=== PATIENT | female | born 1960 | race Caucasian/White ===

== ENCOUNTER 2016-11-03 08:23 | Inpatient (IN) | payer MEDICARE, MEDICAID ==
[2016-11-03] VITALS (11 sets, daily range): BP systolic 96–142; BP diastolic 65–92; PULSE 64–80; RESP 13–24; O2SAT 91–100
[~2016-11-03] VITALS: Ht 175.3 cm; Wt 97.2 kg
[~2016-11-03 08:23] MED LIST: ALBU8.5H4 IH; AMIT100T2 PO; AMT25T PO; Acetaminophen IV 1,000 mg IV ONE; Bupivacaine Liposome 1.3% 20 mL Inj INFILTRATE ONE; CALC60CR3 TOP; CARI350T PO; CERA453C2 TP; CHOL500011 PO; CLOB15CR3 TOP; Clindamycin 900 mg/50 mL D5W IV ONE; DIAZ10TA3 PO; DICY20TA10 PO; DULO30CA50 PO; DULO60CA61 PO; ESOM40CA41 PO; FOLI1TAB18 PO; Gentamicin 40 mg/mL 2 mL Inj INJ ONE; Hip/Knee Infiltration Cocktail INFILTRATE ONE; LIP40 PO; LOPE2TAB32 PO; LORA10CA PO; Lactated Ringer's 1,000 ML IV SCH; METH25VI21 IM; METO-301 PO; METO-386 PO
[2016-11-03] MEDS ORDERED: Lactated Ringer's 1,000 ML IV ONE ×2 (09:33→13:31)
[2016-11-03] MEDS ORDERED: Magnesium Hydroxide 10 mL Oral Concentration PO PRN (10:15)
[2016-11-03] MEDS ORDERED: Polyethylene Glycol (PEG) 17 Gm Powder PO PRN (10:15)
[2016-11-03] MEDS ORDERED: HYDROcodone-APAP 5-325 mg Tablet PO PRN (10:15)
[2016-11-03] MEDS ORDERED: Sodium Biphos-Phos 133 mL Enema RECTAL PRN (10:15)
[2016-11-03] MEDS ORDERED: Lactated Ringer's 1,000 ML IV SCH (11:17)
[2016-11-03] MEDS ORDERED: Lactated Ringer's 500 ML IV PRN (11:17)
[2016-11-03] MEDS ORDERED: fentaNYL-PF 50 mCg/mL 2 mL Inj IVPUSH PRN (11:20)
[2016-11-03] MEDS ORDERED: EPHEDrine Sulfate 50 mg/mL Inj IVPUSH PRN (11:20)
[2016-11-03] MEDS ORDERED: Dexamethasone 4 mg/mL Inj IVPUSH PRN (11:20)
[2016-11-03] MEDS ORDERED: Phenylephrine 10,000 mCg/mL Inj IVPUSH PRN (11:20)
[2016-11-03] MEDS ORDERED: Ondansetron 2 mg/mL 2 mL Inj IVPUSH PRN (11:20)
[2016-11-03] MEDS ORDERED: HYDROmorphone 1 mg/mL Inj IVPUSH PRN ×2 (11:20→14:10)
[2016-11-03] MEDS ORDERED: Bacitracin 50,000 unit Inj IRRIGATION ONE (11:21)
[2016-11-03] MEDS: [UNRECOGNIZED DRUG - OTHER] INFILTRATE ONE ×14 (11:23→12:04)
[2016-11-03] MEDS: BUPIVACAINE INFILTRATE ONE ×14 (11:23→12:04)
[2016-11-03] MEDS: MORPHINE INFILTRATE ONE ×14 (11:23→12:04)
--- NOTE | 2016-11-03 12:14 | PCM.HPANE ---
Patient Data Surgeon Admitting Provider: Attending Provider:Eduin Jaramillo MD Primary Care Physician:Dennis Pineda MD Other Provider:[place] [facility] Reason for Visit Left Shoulder Arthritis Ht/WT & BMI Height (Feet): 5 Height (Inches): 9 Weight (Kilograms): 99.3 Body Mass Index 32.00 Allergies Coded Allergies: NSAIDS (Non-Steroidal Anti-Inflamma (Verified Allergy, Severe, GI bleed, ) Pyrimidine Analogues (Verified Allergy, Severe, GI bleed, 10/26/16) Sulfa (Sulfonamide Antibiotics) (Verified Allergy, Severe, Nausea and vomiting, 10/26/16) ascorbic acid (Verified Allergy, Severe, Gi upset, 10/26/16) aspirin (Verified Allergy, Severe, GI bleed, 10/26/16) bupropion (Verified Allergy, Severe, itching, 10/26/16) cephalexin (Verified Allergy, Severe, Gi bleed, nausea and vomiting, ) chondroitin sulfate A (Verified Allergy, Severe, Gi upset, 10/26/16) ciprofloxacin (Verified Allergy, Severe, Seizure, 10/26/16) clopidogrel (Verified Allergy, Severe, Unsteady gait, 10/26/16) diphenhydramine (Verified Allergy, Severe, colon irritation, 10/26/16) gabapentin (Verified Allergy, Severe, Gi bleed, 10/26/16) gadobutrol (Verified Allergy, Severe, Anaphylaxis, 10/26/16) MRI contrast glucosamine (Verified Allergy, Severe, Gi upset, 10/26/16) ketorolac (Verified Allergy, Severe, IM and IV ok, taken PO causes GI upset, 10/26/16) manganese (Verified Allergy, Severe, Gi upset, 10/26/16) methylsulfonylmethane (Verified Allergy, Severe, Gi upset, 10/26/16) morphine (Verified Allergy, Severe, Immunity and severe nausea and vomiting, 10/26/16) tizanidine (Verified Allergy, Severe, headache, 10/26/16) tramadol (Verified Allergy, Severe, IV or IM ok, taken PO causes GI bleed , 10/26/16) tromethamine (Verified Allergy, Severe, nausea and vomiting, 10/26/16) erythromycin base (Verified Allergy, Intermediate, nausea and vomiting, ) Penicillins (Verified Adverse Reaction, Severe, COMA, 10/26/16) sumatriptan (Verified Adverse Reaction, Severe, nausea and vomiting, ) Uncoded Allergies: PARIDODINE (Allergy, Unknown, 06/19/14) Past Anesthesia History Anesthesia History: Denies:: Abnormal Airway, Anesthesia Reactions, Difficult Intubation, Fam Anesthesia Reaction, Fam Malignant Hypertherm, Malignant Hyperthermia Diabetes History Hx Diabetes?: No MRSA MRSA: No Medications Hypertension Medication: Yes (Lipitor) Home Meds Incl Beta Dav: No Reported Medications Loratadine (Claritin)10 Mg Ofdtnfk83 Mg PO DAILY Ref 0 10/26/16 Folic Acid 1 Mg Tablet1 Mg PO DAILY 30 Days 10/26/16 Duloxetine 60 Mg Capsule.dr60 Mg PO MORNING Ref 0 10/26/16 Duloxetine 30 Mg Capsule.dr30 Mg PO QPM Ref 0 10/26/16 Loperamide 2 Mg Tablet2 Mg PO QPM PRN For Diarrhea or Loose Stool 10/26/16 Loperamide 2 Mg Tablet2 Mg PO MORNING PRN For Diarrhea or Loose Stool 10/26/16 Calcipotriene Cream 30 Appl/60 Gm Cream1 Appl TOP BID #1 TUBE Ref 0 07/23/14 Clobetasol Propionate/Emoll (Clobetasol Emollient 0.05% Crm)15 Gm Cream..g.1 Appl TOP BID #1 TUBE 07/23/14 Ceramides 1,3,6-11 (Cerave)453 Gm Cream..g.453 Gm TP BID 07/23/14 Albuterol HFA 8.5 Gm Hfa.aer.ad2 Puffs IH Q4-6H PRN For Shortness of Breath 07/18/14 Methotrexate Sod (Methotrexate 25 mg/ml Vial)25 Mg/1 Ml Sdv1 Ml IM QW on Fridays07/18/14 Cholecalciferol (Vitamin D3) (Vitamin D3)5,000 Unit Tablet5,000 Unit PO DAILY 07/18/14 Amitriptyline 100 Mg Kxbrqd317 Mg PO HS 07/18/14 Dicyclomine 20 Mg Srvlil81 Mg PO TID PRN For GI Cramps 06/19/14 Diazepam 10 Mg Rbijxn17 Mg PO TID PRN For Anxiety 06/19/14 Metoprolol Succinate ER 25 Mg Tab.er.24h25 Mg PO DAILY 06/19/14 Carisoprodol (Soma)350 Mg Xewptx246 Mg PO QID PRN For Pain 06/19/14 Esomeprazole Magnesium (Nexium)40 Mg Capsule.dr40 Mg PO DAILY 06/19/14 Amitriptyline 25 Mg Tab25 Mg PO HS 06/19/14 Atorvastatin (Lipitor)40 Mg Quouzr64 Mg PO HS 06/19/14 Discontinued Reported Medications Metoclopramide (Reglan)10 Mg Gpwbxn06 Mg PO TID PRN reflux 06/19/14 History History of ENT Problems?: Yes HEENT History: Positive for:: TMJ Denies:: Abnormal Airway Cataracts Difficult Intubation Dysphagia Hearing Problem Sinus Problem Denture Type: Full- Upper Full- Lower Teeth Condition: Missing Teeth Hx of Heart Problems?: Yes Cardiovascular History: Positive for:: Chest Pain (non cardiac) Hypertension Irregular Heartbeat (48 hr halter monitor occ. PVC & PAC) Denies:: AICD Abdominal Aortic Aneurism Atrial Fibrillation Cardiac Surgery Congestive Heart Failure Coronary Artery Disease Edema Heart Murmur Pacemaker Thrombophlebitis Valvular Heart Disease Hx of Respiratory Problem?: Yes Respiratory History: Positive for:: Asthma Dyspnea Pneumonia (Last winter 2015) Use of Inhalers / NEBS (albuterol) Denies:: COPD Chest Surgery Cough Emphysema Hemoptysis Pulmonary Embolism Tuberculosis Use of C-PAP Machine Hx Neurologic Problems?: Yes Neurological History: Positive for:: Headaches TIA (last 20 yrs ago) Denies:: Alzheimer's Disease CVA Dementia Dizziness Parkinson's Disease Seizures Hx of GI Problems?: Yes Hx of Problems?: No Genitourinary History: Denies:: HX of Hemodialysis Urinary Tract Infection HX of Peritoneal Dialysis: No Female Hx: Positive for:: Endometriosis Denies:: Currently Pelvic Inflammatory Problems with Breasts? Skin History: Positive for:: History Skin Disorders? (Psortic arthritis) Denies:: Pressure Ulcers Hx Musculoskeletal Problems?: Yes Musculoskeletal History: Positive for:: Back Injury (fibromyagia, psoriatric arthritis, 4 back surgeries, ) Fibromyalgia Osteoarthritis Denies:: Degenerative Joint Joint Replacement Musculoskeletal Trauma Rheumatoid Arthritis Hx of Psycho/Social Problems?: Yes Psycho Social History: Positive for:: Anxiety Hx Depression Denies:: Bipolar Disorder Suicide Attempt Hx Surgeries?: Yes (tonsils, right shoulder, foot, r toe fusion,back and neck, hyst,appy) Hx Any Other Health Problems?: Yes Other History: Positive for:: Hospitalization Denies:: Cancer Thyroid Disease History Blood Transfusions: Denies:: Accept Blood Products? Blood Transfuse Reaction Blood Transfusions Hx Diabetes: No Hx Alcohol Use: NoHx Substance Use: No Smoking Status: Current Every Day Smoker Have You Smoked inLast 12 mo: Yes (vapor smoker) Stop/Bang S-Snoring: Do You Snore Loudly: No T-Tired: feel tired, fatigued: Yes O-Obsered: Observed not breath: No P-Blood Pressure: treated: Yes B- Body Mass Index > 35 kg/m2: Yes A- Age over 50: Yes N- Neck Large Circumference: No G- Gender Male: No JENNIFER Total Score: 4 Risk Assessment Category Category 1A: Patient has history of documented sleep apnea, and HAS NOT received any narcotic, sedative or anesthesia administration during this stay. Category 1B: Patient has history of documented sleep apnea, and HAS received any narcotic , sedative or anesthesia administration during this stay Category 2: Patient has SUSPECTED Obstructive Sleep Apnea, and HAS received any narcotic , sedative or anesthesia administration during this stay. Category 3: Patient has SUSPECTED Obstructive Sleep Apnea and HAS NOT received narcotic, sedative or anesthesia administration during this stay. Category 4: Outpatient in Procedural Areas with known sleep apnea or who screen positive for High Risk via the STOP/BANG questionnaire. Exam Exam General Appearance: Alert, Oriented X3, Cooperative, No Acute Distress HEENT/AIRWAY: MP 2, Neck Movement (FROM despite neck surgery), Mouth Opening ( 3 fbmo) Lungs: Diminished Heart: Exam Unremarkable, Regular Rate/Rhythm, No Murmurs/Rubs/Gallops Plan Impression Patient chart reviewed, patient interviewed and anesthestic plan with risks, benefits, and alternatives discussed, and informed consent obtained. NPO per Anesth. Guidelines: Yes ASA Physical Status: ASA3 Severe Disease Anesthetic Plan: GA, Regional Block (left interscalene block - long discussion about risks including postoperative nerve damage including motor and/or sensory loss as well as shortness of breath and difficulty breathing. The patient still wanted to proceed. AQA. Consent signed.) Bene/Risks/Altern/Consents: Yes HP Complete Prior to Induction: Yes Neil Ortega MD Nov 03, 2016 09:32
--- NOTE | 2016-11-03 12:48 | PCM.ORTHOP ---
Orthopedic Operative Report Date of Service: Nov 03, 2016 Pre Operative Diagnosis left shoulder degenerative joint disease Post Operative Diagnosis left shoulder degenerative joint disease Procedure left total shoulder arthroplasty, open biceps tenodesis Surgeon Surgeon: Eduin Jaramillo MD Assistants: Petar Anderson Indication for Procedure left shoulder DJD Findings per dictation Details of Procedure Implant: Arthrex univers vaultlock size small glenoid, stem size 12mm with 52/ 22 head The risks, benefits, indications and alternatives, including non-operative management of open reduction and plating were discussed with the patient in detail. The patient understood this operation would be strictly for pain control and would not necessarily improve the function of the arm. The patient voiced understanding of the risks and agreed to proceed. All questions were answered to the patients satisfaction. Verbal and written consent were obtained. Description of Operation: The patient was brought to the operating room. Time out was performed in the presence of the Orthopedic and the sales special agent. Preoperative antibiotics were given. Interscalene block performed by anesthesia. General anesthesia was administered. The patient was placed in a beachchair position. The left arm was prepped and draped in the usual sterile fashion. A standard deltopectoral approach was made. Blunt dissection was carried through the interval to expose the subscapularis muscle after retracting the conjoined tendon medially. Care was taken to not damage nearby neurovascular structures. The anterior humeral circumflex vessels were ligated. Minaya scissors were used to cut through the rotator interval to expose the anatomic neck of the humerus. The subscapularis tendon was tagged using # 1 Ethibond sutures. The subscapularis tendon was cut longitudinally using a Bovie. The shoulder was slowly externally rotated while peeling the inferior capsule off of the humeral neck until the shoulder was dislocated and the humeral head was exposed. There were several small loose bodies in the subscapularis recess which were removed. There was extensive erosion and flattening of the humeral head. Extensive osteophytes were present over the periphery of the humeral head. Mild to moderate dysplasia of the head was seen as evidenced by the increased inclination of the head. The subscapularis was tucked medially. The osteophytes around the humeral head were removed using an osteotome and mallet to expose the anatomic neck. The supraspinatus and infraspinatus were found to be intact and attached to the greater tuberosity. A neck cutting guide was placed and then the cut was made with 30 degrees of retroversion using a saw. The neck was sequentially broached to the proper fit. The head trial were placed until the proper fit was obtained. A head protector sleeve was placed on the cut surface. Using a Triatt retractor the glenoid was exposed. Circumferential exposure of the glenoid from the 1 o'clock position to the 7 o'clock position was done using a Bovie taking care to stay close to the bone. The glenoid was sized and then reamed appropriately. Peg holes were drilled along with the center hole. A trial implant was placed which fit well. After removing the trial, the wound was irrigated. The peg holes were filled with manually pressurized cement and the above mentioned glenoid component was impacted until an excellent fit was obtained. Attention was then taken to the humeral head. The humeral head trial was placed the the shoulder stability was verified after reduction and found to be appropriate. The trial head and stem were removed and proper inclination was noted. Multiple #2 Fiber-wire sutures were placed in the lateral subscapularis stump on the lesser tuberosity and then through the rim of the humeral neck. The implant was assembled on the back table. The wound was irrigated. The humeral implant was impacted into the humerus until the proper fit was obtained. The shoulder was reduced and excellent stability was tested and verified. The subscapularis was then repaired using the aforementioned Fiber-wire sutures and also an 0-Vicryl suture. A proximal biceps tenotomy was performed after a distal tenodesis was performed to the pec major.. The rotator interval was closed. Hemostasis was achieved. The wound was irrigated with copious saline. Local cocktail was used which included bupivicaine. Gentamicin was injected into the joint. IV transexamic acid was used preop and intraop. The wound was then closed in layers , dressed appropriately and the shoulder was placed in an immobilizer. The patient was extubated without difficulty and transferred to the PACU in stable condition. ESTATE MANAGER SURGEON: During the operation, the services of physician surgical coordinator were medically indicated and necessary to provide exposure of the operative site for the surgical procedure and to maintain the limb in a proper position to carry out the operation safely and efficiently. Without the qualified assistant service manager being present, it would have extended the operative procedure and made the procedure technically more difficult to perform. Nonweightbearing to affected upper extremity. Please leave sling on at all times. You may remove sling 3 times a day to move the elbow wrist and fingers. Do not move your shoulder. PROM only, IR to body, ER to 0 degrees, FF to 90 degrees, ABD to 0 degrees. Keep your arm at neutral, NO external rotation of the arm, no resisted IR of the arm. Please keep the affected extremity elevated when possible. You may use ice and/or heat as needed for comfort. Follow-up in 2 weeks with me with 2-view xrays and for suture removal and Steri -Strip application. Follow-up with me at 6 weeks. You will have pain medications , medication for constipation and have deferred aspirin 81 qdaily X 2 weeks given your hx of aspirin allergy. Grafts, Implants: Implants-See Implant Record Complications There were no periprocedural complications identified. Condition Stable Anesthetic Administered: GA Catheters: None Output, Estimated Blood Loss: 50 Blood Admin during surgery: No Surgical Cast or Splint: Shoulder Immobilizer Surgical Specimen Removed: No Specimen sent to Pathology: No copies to: Eduin Jaramillo MD, Christopher L MD Nov 03, 2016 12:48
--- NOTE | 2016-11-03 13:41 | DRSVH ---
PROCEDURE: X-RAY LEFT SHOULDER, MINIMUM TWO VIEWS ([id number]) INDICATIONS: post op TECHNIQUE: 2 views of the shoulder were acquired. COMPARISON: LOCATED WITHIN [facility], CR, XR SHOULDER MIN 2VW LT, 09/08/2016, 12:43. FINDINGS: Postoperative images demonstrate left humeral arthroplasty. There is good anatomic alignment. Hardwar e is intact. No visualized fracture. IMPRESSION: Postoperative left humeral arthroplasty. Dictated by: Lulu Argueta M.D. on 11/03/2016 at 13:39 Approved by: Lulu Argueta M.D. on 11/03/2016 at 13:40
[2016-11-03] MEDS ORDERED: fentaNYL-PF 50 mCg/mL 2 mL Inj ONE (13:44)
[2016-11-03] MEDS ORDERED: Rocuronium 10 mg/mL 5 mL Inj ONE (13:44)
[2016-11-03] MEDS ORDERED: Glycopyrrolate 0.2 MG/ML 1mL Inj ONE (13:44)
[2016-11-03] MEDS ORDERED: Propofol 10,000 mCg/mL 20 mL Inj ONE (13:44)
[2016-11-03] MEDS ORDERED: Neostigmine 1 mg/mL 10 mL Inj ONE (13:44)
[2016-11-03] MEDS ORDERED: Ondansetron 2 mg/mL 2 mL Inj ONE (13:44)
--- NOTE | 2016-11-03 14:00 | NUR ---
Post Op Pt arrived to floor ~1345. Pt arrived on O2 @ 2L with arm in sling. Pt numb from shoulder to finger tips. Pt states she was told that the block would last 30 mins. Pt states pain on arrival is 1/10. Pt has a specific pain med regimen that she follows at home. Voided on arrival to floor without issue. See post assessment for more info
--- NOTE | 2016-11-03 14:06 | PCM.ANEP1 ---
Post Anesthesia PACU Phase 1 Assessment Date of Service: Nov 03, 2016 Vital Signs Vital Signs Date Time Temp Pulse Resp B/P Pulse Ox O2 Delivery O2 Flow Rate FiO2 11/03/16 14:02 36.5 64 20 120/76 100 Nasal Cannula 3.00 11/03/16 13:25 67 16 111/68 95 Nasal Cannula 2 11/03/16 13:20 67 16 112/69 91 Room Air 11/03/16 13:15 36.4 67 15 120/67 94 Room Air 11/03/16 13:10 76 13 116/92 96 Room Air 11/03/16 13:05 78 15 131/77 97 Simple Mask 8 11/03/16 13:00 80 17 128/78 96 Simple Mask 8 11/03/16 12:55 36.3 79 17 131/86 96 Simple Mask 8 11/03/16 09:34 36.4 73 17 96/65 97 Room Air Anesthetic Administered: GA, Regional Block Level of Alertness: Awake, talking KOHLI's with Equal Strength: No (good functioning left arm block) Pain: No Nausea or Vomiting: No CV Function & Hydration Stable: Yes Airway Device: Oxygen Delivery: Simple Mask Lungs: Normal Air Movement PACU Phase 2 Assessment Complications: No Follow up Care: N/A Patient Instructions Provided: N/A Estuardo Colindres MD Nov 03, 2016 14:06
[2016-11-03] MEDS ORDERED: HYDROmorphone PCA 0.2 mg/mL 30 mL Inj - Opioid Tolerant IV PRN (14:10)
[2016-11-03] MEDS: 0.9% Sodium Chloride 1,000 ML IV SCH (14:49)
--- NOTE | 2016-11-03 15:00 | NUR ---
Droopy left eye ~1500 pts left eye became droopy. Pt states she felt like it was a tia. Tongue is midline and pt has normal speech pt has strong push pull on feet (unable to assess L arm as it is in a sling and arm is numb.) vitals signs WNL BS 91. Called Renae Mckeon for assessment. Spoke with Petar Anderson who spoke with anesthesia who stated that it was from the nerve block that had traveled up and it was not an issue. Care conts
[2016-11-03] MEDS ORDERED: Albuterol 2.5 mg/3 mL Inhalation Solution NEB PRN (15:25)
[2016-11-03] MEDS ORDERED: methoTREXate-PF 25 mg/mL 2 mL Inj IM SCH (15:56)
--- NOTE | 2016-11-03 16:01 | NUR ---
Evaluation completed. Please go to "Notes" then click on "Assessments and Notes" (bottom left corner of screen). Then select appropriate discipline tab on top of screen.
[2016-11-03] MEDS ORDERED: Clindamycin Inj 600 MG in IV Premix 1 EACH IV SCH (16:30)
[2016-11-03] MEDS: Sodium Chloride LOK Flush 10 mL Syringe IV SCH (16:30)
--- NOTE | 2016-11-03 16:54 | NUR ---
Pain med update Spoke with pt regarding benefits of pain po meds vs TECHNOLOGIST DEVELOPMENT to control. Decision was made that pt would prefer to be on her home pain med regimen and not be on TECHNOLOGIST DEVELOPMENT. Spoke with Petar CAMPBELL who spoke with Dr. Jaramillo and anesthesia and decision was made to start on po pain meds and hold TECHNOLOGIST DEVELOPMENT. Current pain is 5/10. care conts.
[2016-11-03] MEDS: Clindamycin Inj 900 MG in IV Premix 1 EACH IV SCH (17:15)
[2016-11-03] MEDS: HYDROmorphone 1 mg/mL Inj IVPUSH PRN ×2 (17:31→22:24)
[2016-11-03] MEDS: Senna-Docusate 8.6-50 mg Tablet PO SCH (20:21)
[2016-11-03] MEDS: HYDROcodone-APAP 10-325 mg PO PRN (20:22)
[2016-11-04] MEDS: HYDROcodone-APAP 10-325 mg PO PRN ×3 (00:13→10:42)
[2016-11-04] MEDS ORDERED: DULoxetine 30 mg DR Capsule PO SCH ×2 (00:20→08:30)
[2016-11-04] MEDS: Sodium Chloride LOK Flush 10 mL Syringe IV SCH ×2 (00:46→08:42)
[2016-11-04] MEDS: Clindamycin Inj 900 MG in IV Premix 1 EACH IV SCH (00:46)
[2016-11-04] MEDS: 0.9% Sodium Chloride 1,000 ML IV SCH ×2 (01:08→04:06)
[2016-11-04 01:50] VITALS: BP 120/81; PULSE 66; RESP 20; O2SAT 97
[2016-11-04 05:30] LABS: BASOPHILS % (AUTO) 0.2 % (0-3); EOSINOPHILS % (AUTO) 0.3 % (0-5); MONOCYTES % (AUTO) 9.3 % (4-12); Mean Corpuscular Hemoglobin 33.8 pg (27.0-35.0); NEUTROPHILS % (AUTO) 72.9 % (40-74); Platelet Count 293 bil/L (150-400)
[2016-11-04 05:55] VITALS: BP 111/73; PULSE 67; RESP 20; O2SAT 99
--- NOTE | 2016-11-04 06:08 | NUR ---
NOC PT slept well after all of her meds were finally given. Melatonin ordered x's1 per pt request. PT has been taking 2 norco routinely, iv dilaudid once, soma and valium. CMS to LUE iintact, aside from sensation which is still decreased this am due to block. PT able to move fingers more this am. L hand a little edematous. Arm in sling. PT will state her pain is a 10 when she just opens her eyes. HEr demeanor is very hard to read as she will go from crying to laughing in a second and rating her pain at 12/10. Pt having a bit of urine hestitancy early in shift, but it has since resolved. NO nausea. No vomitting. PT ready for d/c.
[2016-11-04] MEDS ORDERED: MeTOProlol XL 25 mg ER24 Tablet PO SCH (08:30)
[2016-11-04] MEDS: Senna-Docusate 8.6-50 mg Tablet PO SCH (08:30)
[2016-11-04] MEDS ORDERED: Pantoprazole 40 mg ER24 Tablet PO SCH (08:30)
[2016-11-04 08:41] VITALS: BP 100/61; PULSE 68; RESP 20; O2SAT 94
[2016-11-04] MEDS: HYDROmorphone 1 mg/mL Inj IVPUSH PRN (08:42)
--- NOTE | 2016-11-04 10:39 | PCM.PNORTH ---
Subjective Date of Service: Nov 04, 2016 Visit Information: Reason for Visit Left Shoulder Arthritis Surgery/Surgery Date LEFT TOTAL SHOULDER 11/03/16 Post-Op Day # Date of Admission: Nov 03, 2016 at 13:43 Hospital Day # Subjective Status post day #1 left total shoulder arthroplasty. Patient states she is eating, feeling pretty good today, her pain is well controlled as long as she is on her regular regimen from home. Definitely would like to go home today. Postop General: No Complaints, No Shortness of Breath, No Chest Pain Objective Exam Objective Patient is alert and oriented 3. Answering questions appropriately. Patient is sitting up in the bed and not in acute distress today. Dressing is clean dry and intact. Shoulder in good position and wearing the sling appropriately. Sensation and pulses intact, patient able to wiggle fingers. Vital Signs and I/O Vital Sign - Last Date Time Temp Pulse Resp B/P Pulse Ox O2 Delivery O2 Flow Rate FiO2 11/04/16 08:41 36.8 68 20 100/61 94 Room Air 11/03/16 14:02 3.00 Intake and Output 11/03/16 11/03/16 11/04/16 Cumulative From/Thru 14:59 22:59 06:59 10/26/16 11:57 - 11/03/16 18:59 Intake Total 1520 ml 1002 ml 2522 ml Output Total 120 ml 2 ml 122 ml Balance 1400 ml 1000 ml 2400 ml Intake Oral 1002 ml 1002 ml IV Total 1520 ml 1520 ml Output Urine Total 2 ml 2 ml Estimated Blood Loss 120 ml 120 ml Lab & Micro Results Laboratory Tests Test 11/04/16 05:04 White Blood Count 11.7th/mm3 (3.8-10.1) Red Blood Count 2.66mil/mm3 (3.90-5.20) Hemoglobin 9.0g/dL (12.0-15.6) Hematocrit 25.8% (35.0-46.0) Mean Corpuscular Volume 97.0fL (81-100) Mean Corpuscular Hemoglobin 33.8pg (27.0-35.0) Mean Corpuscular Hemoglobin Concent 34.9% (32.0-37.0) Red Cell Distribution Width 12.1% (12.3-15.4) Platelet Count 293bil/L (150-400) Neutrophils (%) (Auto) 72.9% (40-74) Lymphocytes (%) (Auto) 17.1% (14-46) Monocytes (%) (Auto) 9.3% (4-12) Eosinophils (%) (Auto) 0.3% (0-5) Basophils (%) (Auto) 0.2% (0-3) Result Diagram: 11/04/16 0504 Catheters: None Assessment & Plan Impression Status post day #1 left total shoulder arthroplasty. Patient doing very well and would like to go home today. Patient on a aggressive plan for muscle spasms , anxiety, pain control but this is her baseline for the last 20 years for chronic pain control and she is doing well on this regimen. Problems: Plan Keep the dressing clean dry and intact for at least 3 days. On day number for you may remove the dressing if desired and shower. Please try to replace with another dressing and keep the wound dry as possible anterior postoperative appointment. You should not lift, pull, push with this arm. Remain in the sling at all times except for 3 times a day to allow the elbow to extend fully. No rotation of the arm, no lifting of the arm. You may resume your regular regimen of Valium, soma, hydrocodone at home. I gave you a prescription for Percocet to take as a replacement for the hydrocodone to avoid overdose of acetaminophen as we discussed. We will have you continue to follow-up with her primary care provider for pain control as you currently have a pain contract. Patient has an allergy to aspirin and elects to go without DVT prophylaxis for this reason. We will have you follow-up at 2 weeks for wound assessment with Dr Jaramillo, then follow-up again at [address] Jaramillo with x-rays as well. Patient will be discharged to home today. Petar Anderson PA-C Nov 04, 2016 10:39
--- NOTE | 2016-11-04 10:40 | PCM.DIORTH ---
Ortho Discharge Instruction Date of Service: Nov 04, 2016 Dates of Hospitalization Date of Hospital Admission Nov 03, 2016 at 13:43 Providers Admitting Physician: Eduin Jaramillo MD Primary Care Physician: Dennis Pineda MD Attending Physician: Eduin Jaramillo MD Diet Discharge Diet: No restrictions Activity Left Upper Extremity: Non-weight bearing Additional Instructions Discharge Instructions Keep the dressing clean dry and intact for at least 3 days. On day number for you may remove the dressing if desired and shower. Please try to replace with another dressing and keep the wound dry as possible anterior postoperative appointment. You should not lift, pull, push with this arm. Remain in the sling at all times except for 3 times a day to allow the elbow to extend fully. No rotation of the arm, no lifting of the arm. You may resume your regular regimen of Valium, soma, hydrocodone at home. I gave you a prescription for Percocet to take as a replacement for the hydrocodone to avoid overdose of acetaminophen as we discussed. We will have you continue to follow-up with her primary care provider for pain control as you currently have a pain contract. We will have you follow-up at 2 weeks for wound assessment with Dr Jaramillo, then follow-up again at [address] Jaramillo with x-rays as well. Petar Anderson PA-C Nov 04, 2016 10:40
--- NOTE | 2016-11-04 10:43 | PCM.DC.ORT ---
Discharge Summary Date of Service: Nov 04, 2016 Date of Hospital Admission: Nov 03, 2016 at 13:43 Date of Surgery: Nov 03, 2016 Date of Discharge: Nov 04, 2016 Reason for Hospitalization: Left shoulder osteoarthritis Procedures Performed: Left total shoulder arthroplasty Hospital Course: Patient presented to [facility] surgical suite for the procedure of left total shoulder arthroplasty by Dr. Eduin Jaramillo on 11/03/2016. Patient was prepped for surgery and the procedure was performed successfully, patient was discharged to PACU under stable condition, tolerated the procedure well. Once stabilized in PACU and pain well controlled, patient was admitted to the hospital floor for observation, pain control, and progression with physical therapy. The first day the patient was able to resume a regular diet, void on their own, not having any problems with nausea or vomiting. The patient did not have any adverse falls, reactions, or events were all in the hospital. The patient began working with physical therapy on day one then progressed quite well with reasonable pain control. On day 1 the patient was able to ambulate safely on their own, and pain was controlled sufficiently to be discharged to home. Patient elects to not have DVT prophylaxis. The patient was discharged to home under stable condition with plan to follow- up with patient at 2 weeks for a postoperative appointment and 6 week postoperative appointment both with Dr Eduin Jaramillo. Diagnosis at Time of Discharge Status post left total shoulder arthroplasty Problems: Orthopedic Follow up Plan: In Two Weeks in my clinic Discharge Instructions: Keep the dressing clean dry and intact for at least 3 days. On day number for you may remove the dressing if desired and shower. Please try to replace with another dressing and keep the wound dry as possible anterior postoperative appointment. You should not lift, pull, push with this arm. Remain in the sling at all times except for 3 times a day to allow the elbow to extend fully. No rotation of the arm, no lifting of the arm. You may resume your regular regimen of Valium, soma, hydrocodone at home. I gave you a prescription for Percocet to take as a replacement for the hydrocodone to avoid overdose of acetaminophen as we discussed. We will have you continue to follow-up with her primary care provider for pain control as you currently have a pain contract. We will have you follow-up at 2 weeks for wound assessment with Dr Jaramillo, then follow-up again at [address] Jaramillo with x-rays as well. Albuterol HFA (Albuterol HFA) 8.5 Gm Hfa.aer.ad 2 PUFFS IH Q4-6H PRN PRN For Shortness of Breath Amitriptyline (Amitriptyline) 25 Mg Tab 25 MG PO HS Amitriptyline (Amitriptyline) 100 Mg Tablet 100 MG PO HS Atorvastatin (Lipitor) 40 Mg Tablet 40 MG PO HS Calcipotriene Cream (Calcipotriene Cream) 30 Appl/60 Gm Cream 1 APPL TOP BID Carisoprodol (Soma) 350 Mg Tablet 350 MG PO QID PRN PRN For Pain Ceramides 1,3,6-11 (Cerave) 453 Gm Cream..g. 453 GM TP BID Cholecalciferol (Vitamin D3) (Vitamin D3) 5,000 Unit Tablet 5,000 UNIT PO DAILY Clobetasol Propionate/Emoll (Clobetasol Emollient 0.05% Crm) 15 Gm Cream..g. 1 APPL TOP BID Diazepam (Diazepam) 10 Mg Tablet 10 MG PO TID PRN PRN For Anxiety Dicyclomine (Dicyclomine) 20 Mg Tablet 20 MG PO TID PRN PRN For GI Cramps Duloxetine (Duloxetine) 30 Mg Capsule.dr 30 MG PO QPM Duloxetine (Duloxetine) 60 Mg Capsule.dr 60 MG PO MORNING Esomeprazole Magnesium (Nexium) 40 Mg Capsule.dr 40 MG PO DAILY Folic Acid (Folic Acid) 1 Mg Tablet 1 MG PO DAILY Loperamide (Loperamide) 2 Mg Tablet 2 MG PO MORNING PRN PRN For Diarrhea or Loose Stool Loperamide (Loperamide) 2 Mg Tablet 2 MG PO QPM PRN PRN For Diarrhea or Loose Stool Loratadine (Claritin) 10 Mg Capsule 10 MG PO DAILY Methotrexate Sod (Methotrexate 25 mg/ml Vial) 25 Mg/1 Ml Sdv 1 ML IM QW on Fridays Metoprolol Succinate ER (Metoprolol Succinate ER) 25 Mg Tab.er.24h 25 MG PO DAILY Petar Anderson PA-C Nov 04, 2016 10:43
--- NOTE | 2016-11-04 11:35 | NUR ---
Social Work- Initial Assessment/Discharge/Multidisciplinary Rounds Data: EMR reviewed. Pt is a 56 year old female admitted for elective right shoulder replacement per H&P. Pt's insurance is [facility] and [facility] Supp. Pt's PCP is Dennis Pineda MD. Pt's readmit risk score is not listed at this time. Pt's NOK is Georgina Theodore, no number provided to SW at bedside. SW discussed pt with Ortho PA Petar Anderson. No SW orders received, no concerns related to pt's capacity for self-care identified in this conversation. SW met with pt her [facility] caregiver at bedside to complete discharge assessment. Pt alert and oriented x3. Pt's capacity for self-care assessed. Pt resides in [place] alone in a rented home. Pt uses a cane at baseline. Pt has [facility] caregiving, unsure how many hours. Pt's caregiver will be available to assist pt at home as needed. Pt drives. Pt has remote history of services, company unknown. No history of SNF. Pt has no LTC or VA benefits. Pt's DPOA paperwork and Advance Directive is on file, verified in EMR. SW provided d/c planning checklist , wrote phone number and plan on whiteboard. Pt's caregiver to transport home at discharge, pt is eager to return home. No additional d/c planning needs. [facility] askedto fax pt's [facility] ERICA Estrada a copy of H&P and d/c packet. Assessment: Pt who not independent with ADLs and self-care at baseline who receives [facility] caregiving Plan: Pt to d/c home with caregiver to transport via POV. No additional d/c planning needs identified. All updated and agreeable to plan. HETAL Clemente Addendum: 11/04/16 at 1138 by BELA GERARD Amended: Links added.
--- NOTE | 2016-11-04 14:18 | NUR ---
Discharge Patient left floor at 1413 via wheelchair to be driven home by friend and caregiver. All discharge information discussed with patient including medications, follow up appointments, and bandage/shoulder care. IV d/c'd intact. All belongings left with patient.
== END 2016-11-04 14:00 | disposition home or self-care (01) | DRG 483 ==
LOC: SAS 08:23 → OSC 13:43
PROVIDERS: ADMIT Orthopaedic Surgery; ATTEND Orthopaedic Surgery
PROC: 0RRK0JZ Replacement of Left Shoulder Joint with Synthetic Substitute, Open Approach (ICD-10-PCS; principal; 2016-11-03 10:45)
DX: M19.012 Primary osteoarthritis, left shoulder (principal); J45.909 Unspecified asthma, uncomplicated; F17.200 Nicotine dependence, unspecified, uncomplicated; Z79.51 Long term (current) use of inhaled steroids